=== PATIENT | male | born 1980 | race African-American/Black ===

== ENCOUNTER 2018-02-24 01:51 | Emergency (ER) | payer OTHER ==
[~2018-02-24] VITALS: Ht 188 cm; Wt 122.5 kg
[~2018-02-24 01:51] MED LIST: ACYCLOVIR 800800 MG PO; BENADRYL25 MG PO; IBUPROFEN 800800 M1 PO; NOHOMEMEDICATIONS; PENICILLIN V P500 MG PO; TRIAMCINOLONE 080 G3 TP
[2018-02-24] MEDS ORDERED: NORCO 5-325 TA1 EACH PO (02:34)
[2018-02-24] MEDS ORDERED: KEFLEX500 M1 PO (02:34)
[2018-02-24 03:06] VITALS: BP 121/83
== END 2018-02-24 03:06 | disposition home or self-care (01) ==
LOC: M.ERS 01:51
DX: L03.115 Cellulitis of right lower limb (principal); F17.210 Nicotine dependence, cigarettes, uncomplicated

== ENCOUNTER 2018-04-01 17:45 | Emergency (ER) | payer OTHER ==
[~2018-04-01] VITALS: Ht 182.9 cm; Wt 102.1 kg
[~2018-04-01 17:45] MED LIST changes: +KEFLEX500 M1 PO; +NORCO 5-325 TA1 EACH PO
[2018-04-01] MEDS ORDERED: KEFLEX500 M1 PO (18:19)
[2018-04-01] MEDS ORDERED: NORCO 5-325 TA1 EAC1 PO (18:19)
[2018-04-01 18:34] VITALS: BP 137/87
== END 2018-04-01 18:36 | disposition home or self-care (01) ==
LOC: M.ERS 17:45
DX: N49.2 Inflammatory disorders of scrotum (principal); F17.210 Nicotine dependence, cigarettes, uncomplicated

== ENCOUNTER 2018-05-25 09:58 | Emergency (ER) | payer OTHER ==
[~2018-05-25] VITALS: Ht 188 cm; Wt 127.0 kg
[~2018-05-25 09:58] MED LIST changes: +NORCO 5-325 TA1 EAC1 PO
[2018-05-25 11:15] LABS: ABSOLUTE BASOPHILS 0.1 thou/uL (0.0-0.2); ABSOLUTE EOSINOPHILS 0.2 thou/uL (0.0-0.7); ABSOLUTE LYMPHOCYTES 2.9 thou/uL (0.8-5.3); ABSOLUTE MONOCYTES 0.5 thou/uL (0.0-1.2); ABSOLUTE NEUTROPHILS 5.4 thou/uL (1.6-8.1); EOSINOPHILS 2.6 %; HEMATOCRIT 46.1 % (42.0-52.0); HEMOGLOBIN 15.3 gm/dL (14.0-18.0); LYMPHOCYTES 31.9 %; MCH 26.9 pg (26.0-34.0); MCHC 33.2 g/dL (28.0-37.0); MCV 81.1 fL (80.0-100.0); MONOCYTES 5.5 %; MPV 8.5 fl. (7.2-11.1); NUCLEATED RBCS 0 /100WBC; RBC 5.68 mil/uL (4.50-6.00); RDW-CV 15.3 % (10.5-14.5); WBC 9.2 thou/uL (4.0-11.0)
[2018-05-25 11:30] LABS: ALBUMIN 3.3 g/dL (3.4-5.0); CALCIUM 9.1 mg/dL (8.5-10.1); CREATININE 0.9 mg/dL (0.6-1.3); TOTAL BILIRUBIN 0.4 mg/dL (<0.1-1.0); TOTAL PROTEIN 7.4 g/dL (6.4-8.2)
[2018-05-25 11:31] LABS: POTASSIUM 5.1 mmol/L (3.5-5.1)
[2018-05-25 12:17] LABS: PLATELET COUNT* 315 thou/uL (150-400)
[2018-05-25] MEDS ORDERED: IBUPROFEN 800800 M1 PO (12:54)
[2018-05-25] MEDS ORDERED: NORCO 5-325 TA1 EACH PO (12:54)
[2018-05-25] MEDS ORDERED: AUGMENTIN 875-1 EACH PO (13:18)
[2018-05-25] MEDS ORDERED: FLAGYL500 M1 PO (13:18)
[2018-05-25 13:30] VITALS: BP 125/80
[2018-05-25 13:47] LABS: URINE BILIRUBIN NEGATIVE (Negative); URINE BLOOD NEGATIVE (Negative); URINE COLOR YELLOW; URINE GLUCOSE-RANDOM NEGATIVE (Negative); URINE KETONES NEGATIVE (Negative); URINE LEUKOCYTES-REFLEX TRACE (Negative); URINE PROTEIN NEGATIVE (Negative); URINE SPECIFIC GRAVITY 1.015 (1.005-1.030); URINE UROBILINOGEN 0.2 E.U./dl (0.2-1.0)
[2018-05-25 13:48] LABS: URINE NITRITE-REFLEX POSITIVE (Negative)
[2018-05-25 13:49] LABS: URINE CLARITY HAZY
[2018-05-25 14:18] LABS: BACTERIA-REFLEX >30 Many /HPF (None Seen); SQUAMOUS 4-10 Moderate /LPF (0-3); URINE RBC 0-2 Rare /HPF (0-2); URINE WBC-REFLEX 0-5 Rare /HPF (0-5)
[2018-05-25 14:19] LABS: CRYSTALS None Seen /LPF (None Seen); HYALINE CASTS 0-3 Few /LPF (None Seen); MUCUS None Seen strn/LPF (None Seen)
== END 2018-05-25 13:32 | disposition home or self-care (01) ==
LOC: M.ERS 09:58
PROVIDERS: Physician Assistant
DX: L02.215 Cutaneous abscess of perineum (principal); L40.9 Psoriasis, unspecified; F17.210 Nicotine dependence, cigarettes, uncomplicated

== ENCOUNTER 2018-10-13 10:52 | Emergency (ER) | payer OTHER ==
[~2018-10-13] VITALS: Ht 188 cm; Wt 122.5 kg
[~2018-10-13 10:52] MED LIST changes: +AUGMENTIN 875-1 EACH PO; +FLAGYL500 M1 PO
[2018-10-13] MEDS ORDERED: DOXYCYCLINE MO100 M1 PO (11:13)
[2018-10-13] MEDS ORDERED: ACETAMINOPHEN-1 EAC1 PO (11:13)
[2018-10-13] MEDS ORDERED: NORCO 5-325 TA1 EAC1 PO (11:43)
[2018-10-13 12:00] VITALS: BP 125/80
== END 2018-10-13 12:00 | disposition home or self-care (01) ==
LOC: M.ERS 10:52
DX: L02.411 Cutaneous abscess of right axilla (principal); L40.9 Psoriasis, unspecified; F17.210 Nicotine dependence, cigarettes, uncomplicated

== ENCOUNTER 2018-10-28 14:53 | Emergency (ER) | payer OTHER ==
[~2018-10-28] VITALS: Ht 188 cm; Wt 122.5 kg
[~2018-10-28 14:53] MED LIST changes: +ACETAMINOPHEN-1 EAC1 PO; +DOXYCYCLINE MO100 M1 PO
[2018-10-28 15:16] LABS: URINE BLOOD 1+ (Negative); URINE CLARITY CLEAR; URINE COLOR DARK YELLOW; URINE GLUCOSE-RANDOM NEGATIVE (Negative); URINE KETONES 2+ (Negative); URINE LEUKOCYTES-REFLEX NEGATIVE (Negative); URINE NITRITE-REFLEX NEGATIVE (Negative); URINE PROTEIN 2+ (Negative); URINE SPECIFIC GRAVITY >= 1.030 (1.005-1.030)
[2018-10-28 15:20] LABS: ICTOTEST (BILI CONFIRMATORY) Negative (Negative); URINE BILIRUBIN 2+ (Negative)
[2018-10-28 15:29] LABS: SQUAMOUS 0-3 Few /LPF (0-3)
[2018-10-28 15:30] LABS: AMORPHOUS URATES Few /LPF (None Seen); FINE GRANULAR CASTS 0-3 Few /LPF (None Seen); HYALINE CASTS 0-3 Few /LPF (None Seen); MUCUS >6 Heavy strn/LPF (None Seen); URINE RBC 0-2 Rare /HPF (0-2); URINE WBC-REFLEX 0-5 Rare /HPF (0-5)
[2018-10-28 15:41] LABS: ABSOLUTE EOSINOPHILS 0.1 thou/uL (0.0-0.7); ABSOLUTE LYMPHOCYTES 2.4 thou/uL (0.8-5.3); ABSOLUTE MONOCYTES 0.4 thou/uL (0.0-1.2); ABSOLUTE NEUTROPHILS 1.4 thou/uL (1.6-8.1); BASOPHILS 0.4 %; CALCIUM 8.6 mg/dL (8.5-10.1); CREATININE 1.2 mg/dL (0.6-1.3); EOSINOPHILS 1.7 %; HEMATOCRIT 46.4 % (42.0-52.0); HEMOGLOBIN 15.3 gm/dL (14.0-18.0); LYMPHOCYTES 55.7 %; MCH 26.5 pg (26.0-34.0); MCV 80.4 fL (80.0-100.0); MONOCYTES 8.7 %; MPV 7.9 fl. (7.2-11.1); NUCLEATED RBCS 0 /100WBC; PLATELET COUNT* 196 thou/uL (150-400); POLYS 33.5 %; POTASSIUM 3.1 mmol/L (3.5-5.1); RBC 5.77 mil/uL (4.50-6.00); RDW-CV 14.3 % (10.5-14.5); WBC 4.3 thou/uL (4.0-11.0)
[2018-10-28 15:45] LABS: ALBUMIN 3.3 g/dL (3.4-5.0); TOTAL BILIRUBIN 0.5 mg/dL (<0.1-1.0); TOTAL PROTEIN 7.7 g/dL (6.4-8.2)
[2018-10-28] MEDS ORDERED: POTASSIUM20 PO (17:43)
[2018-10-28] MEDS ORDERED: ZOFRAN ODT4 MG PO (17:44)
[2018-10-28 18:12] VITALS: BP 128/88
== END 2018-10-28 18:14 | disposition home or self-care (01) ==
LOC: M.ERS 14:53
PROVIDERS: Physician Assistant
DX: R10.13 Epigastric pain (principal); E87.6 Hypokalemia; R11.2 Nausea with vomiting, unspecified; L40.9 Psoriasis, unspecified; F17.210 Nicotine dependence, cigarettes, uncomplicated

== ENCOUNTER 2019-06-02 05:28 | Emergency (ER) | payer OTHER ==
[~2019-06-02] VITALS: Ht 182.9 cm; Wt 120.2 kg
[~2019-06-02 05:28] MED LIST changes: +POTASSIUM20 PO; +ZOFRAN ODT4 MG PO
[2019-06-02 06:19] LABS: ABSOLUTE BASOPHILS 0.1 thou/uL (0.0-0.2); ABSOLUTE EOSINOPHILS 0.3 thou/uL (0.0-0.7); ABSOLUTE MONOCYTES 0.7 thou/uL (0.0-1.2); ABSOLUTE NEUTROPHILS 8.1 thou/uL (1.6-8.1); BASOPHILS 0.9 %; EOSINOPHILS 2.4 %; HEMATOCRIT 43.9 % (42.0-52.0); HEMOGLOBIN 14.7 gm/dL (14.0-18.0); LYMPHOCYTES 24.7 %; MCH 26.8 pg (26.0-34.0); MCHC 33.5 g/dL (28.0-37.0); MCV 79.9 fL (80.0-100.0); MONOCYTES 5.7 %; MPV 7.8 fl. (7.2-11.1); NUCLEATED RBCS 0 /100WBC; PLATELET COUNT* 290 thou/uL (150-400); POLYS 66.3 %; RBC 5.49 mil/uL (4.50-6.00); RDW-CV 15.3 % (10.5-14.5); WBC 12.2 thou/uL (4.0-11.0)
[2019-06-02 06:35] LABS: ALBUMIN 3.2 g/dL (3.4-5.0); CALCIUM 8.6 mg/dL (8.5-10.1); CREATININE 0.9 mg/dL (0.6-1.3); POTASSIUM 4.3 mmol/L (3.5-5.1); TOTAL BILIRUBIN 0.4 mg/dL (<0.1-1.0); TOTAL PROTEIN 7.6 g/dL (6.4-8.2)
[2019-06-02] MEDS ORDERED: AUGMENTIN 875-1 EACH PO (11:52)
[2019-06-02 12:25] VITALS: BP 112/78
== END 2019-06-02 12:27 | disposition home or self-care (01) ==
LOC: M.ERS 05:28
PROVIDERS: Emergency Medicine
DX: L02.215 Cutaneous abscess of perineum (principal); F17.210 Nicotine dependence, cigarettes, uncomplicated

== ENCOUNTER 2020-06-11 16:39 | Emergency (ER) | payer OTHER ==
[~2020-06-11] VITALS: Ht 188 cm; Wt 113.4 kg
[2020-06-11] MEDS ORDERED: DORYX MPC120 MG PO (16:53)
[2020-06-11] MEDS ORDERED: AMOXICILLIN 50500 MG PO (16:54)
[2020-06-11] MEDS ORDERED: PERCOCET 5-3251 EACH PO ×2 (17:18→17:26)
[2020-06-11 17:30] VITALS: BP 142/88
== END 2020-06-11 17:30 | disposition home or self-care (01) ==
LOC: M.ERS 16:39
DX: L02.215 Cutaneous abscess of perineum (principal); L40.9 Psoriasis, unspecified; F17.210 Nicotine dependence, cigarettes, uncomplicated